=== PATIENT | female | born 1935 | race Caucasian/White ===

== ENCOUNTER 2018-09-20 15:30 | Emergency (ER) | payer MEDICARE, OTHER ==
--- NOTE | 2018-09-20 16:19 | ER Document Report ---
ED Medical Screen (RME) - General Chief Complaint: Chest Pain Stated Complaint: CHEST PAIN Time Seen by Provider: 09/20/18 16:13 - HPI Notes: 09/20/18 16:18 Patient is an 83-year-old female with a history of hypertension, congestive heart failure, coronary artery disease with CABG who presents to the emergency department complaining of dry cough and chest pain. Patient states that her upper respiratory illness began about a week ago and the chest pain over the last couple days. Pain does not radiate. Denies CUTLER, fever, neck pain, Abd pain, or rash. I have treated and performed a rapid initial assessment of this patient. A comprehensive ED assessment and evaluation of the patient, analysis of test results and completion of medical decision making process will be conducted by additional ED providers. PHYSICAL EXAMINATION: GENERAL: Well-appearing, well-nourished and in no acute distress. A&Ox4. Answers questions appropriately. LUNGS: Breath sounds clear to auscultation bilaterally and equal. No wheezes rales or rhonchi. HEART: Regular rate and rhythm without murmurs, rubs, gallops. Extremities: 2+ pitting LLE, 1+ RLE (normal for left to be more than right per pt). Non-tender. NEUROLOGICAL: Normal speech, normal gait. PSYCH: Normal mood, normal affect. - Related Data Allergies/Adverse Reactions: flu vaccine Allergy (Uncoded 09/20/18 15:32) Physical Exam - Vital signs Vitals: Temp Pulse Resp BP Pulse Ox 98.0 F 70 20 152/53 H 96 09/20/18 15:54 09/20/18 15:54 09/20/18 15:54 09/20/18 15:54 09/20/18 15:54 Course - Vital Signs Vital signs: Temp Pulse Resp BP Pulse Ox 98.0 F 70 20 152/53 H 96 09/20/18 15:54 09/20/18 15:54 09/20/18 15:54 09/20/18 15:54 09/20/18 15:54
--- NOTE | 2018-09-20 17:19 | RADIOLOGY REPORT (SQ) ---
EXAM DESCRIPTION: CHEST SINGLE VIEW COMPLETED DATE/TIME: 09/20/2018 4:53 pm REASON FOR STUDY: cp/cough COMPARISON: None. EXAM PARAMETERS: NUMBER OF VIEWS: One view. TECHNIQUE: Single frontal radiographic view of the chest acquired. RADIATION DOSE: NA LIMITATIONS: None. FINDINGS: LUNGS AND PLEURA: Mild prominence of the interstitial markings in the lungs may represent chronic changes with acute superimposed inflammatory changes not entirely excluded. Right lower rommel g zones scar or atelectasis. Small right pleural effusion. No pneumothorax. MEDIASTINUM AND HILAR STRUCTURES: No masses. Contour normal. HEART AND VASCULAR STRUCTURES: Heart normal in size. Normal vasculature. BONES: No acute findings. HARDWARE: Prior anterior median sternotomy and valve replacement. OTHER: Small hiatal hernia. IMPRESSION: 1. Mild prominence of the interstitial markings in the lungs, may be on the basis of ch ronic changes with acute superimposed inflammatory changes not entirely excluded. Right lower lung z one scar or atelectasis. 2. Small right pleural effusion. 3. Small hiatal hernia. TECHNICAL DOCUMENTATION: JOB ID: [id number] [employer]- All Rights Reserved Reading location - IP/workstation name: [email or web address]
[2018-09-20 18:10] LABS: ABSOLUTE EOSINOPHILS # (AUTO) 0.1 10^3/uL (0.0-0.6); ABSOLUTE LYMPHOCYTES (AUTO) 1.4 10^3/uL (0.5-4.7); ABSOLUTE MONOCYTES (AUTO) 0.5 10^3/uL (0.1-1.4); ABSOLUTE NEUT (AUTO) 3.5 10^3/uL (1.7-8.2); BASOPHILS % (AUTO) 0.7 % (0-2); EOSINOPHILS % (AUTO) 1.9 % (0-6); HEMATOCRIT 28.3 % (36.0-47.0); HEMOGLOBIN 9.3 g/dL (12.0-15.5); LYMPHOCYTES % (AUTO) 25.2 % (13-45); MEAN CORPUSCULAR HGB CONC 32.9 g/dL (32.0-36.0); MEAN CORPUSCULAR VOLUME 79 fl (80-97); MONOCYTES % (AUTO) 9.2 % (3-13); PLATELET COUNT 226 10^3/uL (150-450); RED BLOOD COUNT 3.57 10^6/uL (3.72-5.28); RED CELL DISTRIBUTION WIDTH 17.1 % (11.5-14.0); TOTAL CELLS COUNTED % (AUTO) 100 %; WHITE BLOOD COUNT 5.6 10^3/uL (4.0-10.5)
[2018-09-20 18:16] LABS: PROTHROMBIN TIME 14.8 SEC (11.4-15.4)
[2018-09-20 18:17] LABS: VENOUS BLOOD BASE EXCESS 0.5 mmol/L; VENOUS BLOOD PCO2 59.8 mmHg (35-63); VENOUS BLOOD PH 7.29 (7.30-7.42)
[2018-09-20 18:18] LABS: PARTIAL THROMBOPLASTIN TIME 41.4 SEC (23.5-35.8)
[2018-09-20 18:22] LABS: AMORPHOUS SEDIMENT,URINE TRACE /HPF; APPEARANCE,URINE CLOUDY; BILIRUBIN,URINE NEGATIVE (NEGATIVE); COLOR,URINE YELLOW; GLUCOSE, URINE 50 mg/dL (NEGATIVE); KETONES,URINE TRACE mg/dL (NEGATIVE); LEUKOCYTE ESTERASE,URINE MODERATE (NEGATIVE); NITRITE,URINE NEGATIVE (NEGATIVE); PROTEIN,URINE 100 mg/dL (NEGATIVE); URINE SPECIFIC GRAVITY 1.015; UROBILINOGEN,URINE NEGATIVE mg/dL (<2.0)
[2018-09-20 18:34] LABS: ALANINE AMINOTRANSFERASE 13 U/L (9-52); ALBUMIN 3.5 g/dL (3.5-5.0); ALKALINE PHOSPHATASE 66 U/L (38-126); ANION GAP 9 (5-19); ASPARTATE AMINO TRANSFERASE 19 U/L (14-36); BILIRUBIN,DIRECT 0.2 mg/dL (0.0-0.4); BILIRUBIN,TOTAL 0.3 mg/dL (0.2-1.3); BLOOD UREA NITROGEN 25 mg/dL (7-20); CALCIUM 8.9 mg/dL (8.4-10.2); CARBON DIOXIDE 28 mmol/L (22-30); CHLORIDE 105 mmol/L (98-107); GLUCOSE 112 mg/dL (75-110); SODIUM 141.9 mmol/L (137-145); TOTAL PROTEIN 6.3 g/dL (6.3-8.2)
[2018-09-20 18:44] LABS: TROPONIN I 0.014 ng/mL
--- NOTE | 2018-09-20 21:48 | EKG REPORT ---
SEVERITY:- ABNORMAL ECG - SINUS RHYTHM LEFT AXIS DEVIATION PROBABLE LVH WITH SECONDARY REPOL ABNRM : Confirmed by: Stephani Hurtado MD 20-Sep-2018 21:47:56
--- NOTE | 2018-09-20 21:59 | ER Document Report ---
ED General - General Chief Complaint: Chest Pain Stated Complaint: CHEST PAIN Time Seen by Provider: 09/20/18 16:13 Primary Care Provider: MICHELLE SMART MD [ACTIVE STAFF] - Follow up in 3-5 days KVNG VALERO MD [ACTIVE STAFF] - 09/22/18 REGULO LUZ MD [ACTIVE STAFF] - 09/22/18 Notes: Patient is a 83-year-old female presents with complaint of some recurrent coughing. Also some increased edema in the lower extremities. Patient just recently down to the area to live with family. She denies any fevers or infections. No production with a cough. Cough is dry. She does have history of CHF. Has some chest pain but only occurs when she has been coughing. She says just a soreness in her chest from the coughing. It developed after she had been coughing for several days. - Related Data Allergies/Adverse Reactions: flu vaccine Allergy (Uncoded 09/20/18 15:32) Past Medical History - Social History Smoking Status: Never Smoker Frequency of alcohol use: None Drug Abuse: None Family History: Reviewed & Not Pertinent Patient has suicidal ideation: No Patient has homicidal ideation: No - Past Medical History Cardiac Medical History: Reports: Hx Hypercholesterolemia, Hx Hypertension Endocrine Medical History: Reports: Hx Diabetes Mellitus Type 2 Renal/ Medical History: Denies: Hx Peritoneal Dialysis Past Surgical History: Reports: Hx Cardiac Surgery - triple bipass Review of Systems - Review of Systems Notes: My Normal Review Basic REVIEW OF SYSTEMS: CONSTITUTIONAL : Denies fever, chills, or sweats. Denies recent illness. EENT: Denies eye, ear, throat, or mouth pain or symptoms. Denies nasal or sinus congestion. CARDIOVASCULAR: Soreness to chest with coughing RESPIRATORY: Recurrent cough GASTROINTESTINAL: Denies abdominal pain. Denies nausea, vomiting, or diarrhea. Denies constipation. Last BM: MUSCULOSKELETAL: Lower extremity edema. SKIN: Denies rash or skin lesions. NEUROLOGICAL: Denies altered mental status or loss of consciousness ALL OTHER SYSTEMS REVIEWED AND NEGATIVE. Physical Exam - Vital signs Vitals: Temp Pulse Resp BP Pulse Ox 98.0 F 70 20 152/53 H 96 09/20/18 15:54 09/20/18 15:54 09/20/18 15:54 09/20/18 15:54 09/20/18 15:54 - Notes Notes: General Appearance: Well nourished, alert, cooperative, no acute distress, no obvious discomfort. Well-appearing. Vitals: reviewed, See vital signs table. Eyes: PERRL, EOMI, Conjuctiva clear Mouth: No decreasd moisture Lungs: No wheezing, No rales, No rhonci, No accessory muscle use, good air exchange bilaterally. Heart: Normal rate, Regular rythm, No murmur, no rub Abdomen: Normal BS, soft, No rigidity, No abdominal tenderness, No guarding, no rebound Extremities: strength 5/5 in all extremities, good pulses in all extremities, no swelling or tenderness in the extremities, 2+ bilateral lower extremity edema. Skin: warm, dry, appropriate color, no rash Neuro: speech clear, oriented x 3, normal affect, responds appropriately to questions. Course - Re-evaluation Re-evalutation: 09/20/18 22:26 I suspect that the patient's recurrent dry cough for the last week is probably related to a little bit of fluid overload. She has some increasing edema in the lower extremities, her BNP is elevated, and her chest x-ray shows some mild pulmonary vascular congestion. Lung ruvalcaba are clear to auscultation. Oxygenation is 95% on room air. She is does not have increased work of breathing. She looks well. Feel she is safe to be discharged home. She used to be on Lasix but has not been on it for a while. I think placing her back on a low-dose of Lasix is appropriate. I have prescribed this for her. I spoke to her and her granddaughter at length about this and they are agreeable to plan. She did just recently moved to the area and therefore she does not have a do ctor. I will refer her to the feather cutting machine feeder. She also has some protein in the urine with some mild renal insufficiency and therefore will refer her to the door captain as well. I encouraged him to return to ER immediately if the patient has fevers, difficulty breathing, worsening pain in her chest, or if she feels that she is worsening in any way. I suspect that her chest pain is a soreness from coughing being that the patient actually describes it as a soreness that is worse when she breathes in or coughs. She says it did not start until after she had been coughing for a while. Troponin and EKG are negative. Dictation of this chart was performed using voice recognition software; there fore, there may be some unintended grammatical errors. - Vital Signs Vital signs: Temp Pulse Resp BP Pulse Ox 98.2 F 70 19 169/72 H 96 09/20/18 22:01 09/20/18 15:54 09/20/18 22:01 09/20/18 22:00 09/20/18 22:01 - Laboratory Result Diagrams: 09/20/18 17:32 09/20/18 17:32 Laboratory results interpreted by me: 09/20/18 09/20/18 09/20/18 17:32 17:32 17:32 RBC 3.57 L Hgb 9.3 L Hct 28.3 L MCV 79 L MCH 26.0 L RDW 17.1 H APTT VBG pH BUN 25 H Creatinine 1.47 H Est GFR ( Amer) 41 L Est GFR (Non-Af Amer) 34 L Glucose 112 H NT-Pro-B Natriuret Pep 5180 H Urine Protein Urine Glucose (UA) Urine Ketones Ur Leukocyte Esterase Urine Ascorbic Acid 09/20/18 09/20/18 09/20/18 17:32 17:32 17:32 RBC Hgb Hct MCV MCH RDW APTT 41.4 H VBG pH 7.29 L BUN Creatinine Est GFR ( Amer) Est GFR (Non-Af Amer) Glucose NT-Pro-B Natriuret Pep Urine Protein 100 H Urine Glucose (UA) 50 H Urine Ketones TRACE H Ur Leukocyte Esterase MODERATE H Urine Ascorbic Acid 40 H - EKG Interpretation by Me Additional EKG results interpreted by me: 09/20/18 21:58 EKG is reviewed and interpreted by me. EKG shows normal sinus rhythm with a rate of [address] segment elevation or depression. Biphasic T waves in leads V5 and V6. PA interval is slightly prolonged. QRS duration QT intervals are within normal range. Discharge - Discharge Clinical Impression: Leg edema, Cough CHF (congestive heart failure) Qualifiers: Heart failure type: unspecified Heart failure chronicity: acute on chronic Qualified Code(s): I50.9 - Heart failure, unspecified Proteinuria Qualifiers: Proteinuria type: unspecified Qualified Code(s): R80.9 - Proteinuria, unspecified Condition: Good Disposition: HOME, SELF-CARE Additional Instructions: I suspect your coughing is related to some fluid overload. This is based on your blood work, edema in your legs, and the chest x-ray findings of a little bit of vascular congestion. Treatment is compression hose on your legs as well as taking Lasix. Please take the Lasix as prescribed. Please follow-up with a heart doctor. I have provided numbers to do different heart doctors. Their names are Dr. Valero and Dr. Luz. Their phone numbers are on the discharge paperwork. You did have some protein in urine. I have also provided the phone number to the local kidney doctor, Dr. Smart. Please call them to make a close follow-up appointment. Please return to the ER immediately if you have worsening chest pain, difficulty breathing, fevers, or feel that you are worsening in any way. Prescriptions: Furosemide [Lasix 20 mg Tablet] 20 mg PO QAM #15 tablet RX: Potassium Chloride 10 meq PO DAILY #15 capsule.er Referrals: KVNG VALERO MD [ACTIVE STAFF] - 09/22/18 REGULO LUZ MD [ACTIVE STAFF] - 09/22/18 MICHELLE SMART MD [ACTIVE STAFF] - Follow up in 3-5 days
[2018-09-20] MEDS ORDERED: FUROSEMIDE INJ/PF 20 MG/2 ML SDV IV ONE (22:21)
[2018-09-20 23:05] VITALS: BP 169/72
== END 2018-09-20 22:35 | disposition home or self-care (01) ==
LOC: ER 15:30
DX: R60.9 Edema, unspecified (principal); I50.9 Heart failure, unspecified; R80.9 Proteinuria, unspecified; R05 Cough; R07.9 Chest pain, unspecified; E78.00 Pure hypercholesterolemia, unspecified; I11.0 Hypertensive heart disease with heart failure; E11.9 Type 2 diabetes mellitus without complications; Z95.1 Presence of aortocoronary bypass graft
CPT/HCPCS: 93005; 99284; 96374; 36415; 85025; 85610; 85730; 80053; 81001; 84484; 82803; 83880; 71045; 93010; J1940

== ENCOUNTER → 2018-10-09 | Outpatient (CLI) | payer MEDICARE ==
--- NOTE | 2018-10-09 16:32 | RADIOLOGY REPORT (SQ) ---
EXAM DESCRIPTION: CHEST PA/LATERAL COMPLETED DATE/TIME: 10/09/2018 3:59 pm REASON FOR STUDY: COUGH COMPARISON: 09/20/2018 EXAM PARAMETERS: NUMBER OF VIEWS: two views TECHNIQUE: Digital Frontal and Lateral radiographic views of the chest acquired. RADIATION DOSE: NA LIMITATIONS: none FINDINGS: LUNGS AND PLEURA: Small right pleural effusion and associated airspace disease. There is a background of COPD. MEDIASTINUM AND HILAR STRUCTURES: Stable. HEART AND VASCULAR STRUCTURES: Stable heart size. No evidence of failure. BONES: No acute findings. HARDWARE: Prosthetic heart valve. OTHER: No other significant finding. IMPRESSION: Right lower lobe pneumonia. TECHNICAL DOCUMENTATION: JOB ID: [id number] [employer]- All Rights Reserved Reading location - IP/workstation name: [email or web address]
== END ==
LOC: OD 15:39
PROVIDERS: ATTEND Family Medicine
DX: R05 Cough (principal)
CPT/HCPCS: 71046

== ENCOUNTER → 2018-10-17 | Outpatient (CLI) | payer MEDICARE, OTHER ==
--- NOTE | 2018-10-18 20:35 | XCELERA REPORT ---
[address] [address] Transthoracic Echocardiogram Report Name: EMILY PERES Age: 83 yrs Gender: Female : 1935 Patient Status: Outpatient Patient Location: Study Date: 10/17/2018 10:17 AM Height: 61 in Weight: 134 lb BSA: 1.6 m2 Procedure: A two-dimensional transthoracic echocardiogram with color flow and Doppler was performed. Study Quality: Fair. Reason For Study: SOB History: Shortness of breath. Ordering Physician: STEPHANI HURTADO Performed By: Hussain Salcido Interpretation Summary Recommend SBE prophylaxis prior to dental,GI, and procedures / surgeries. The left ventricle is normal in size. There is normal left ventricular wall thickness. LV EF is > than 65% The left ventricular ejection fraction is within normal limits. Doppler measurements suggest normal left ventricular diastolic function The left ventricular wall motion is normal. There is no thrombus. NO ASD,VSD , or PFO seen. The right ventricle is mild to moderately dilated. The right ventricle is not well visualized secondary to technical limitations The right atrium is normal. The left atrium is mildly dilated. There is evidence of mitral valve repair.There is mild Mitral Stenosis.Trace to mild MR.No vegetations.No MVP. There is no aortic valvular vegetation. There is no aortic valve stenosis There is aortic sclerosis without aortic stenosis. There is no LVOT obstruction. There is a trace amount of aortic regurgitation There is no tricuspid stenosis. There is a moderate amount of tricuspid regurgitation There is mild pulmonary hypertension by echo RVSP is 38 to 43 mm of Hg , with RA mean of 5 to 10. There is no pulmonic valvular stenosis. There is a trace amount of pulmonic regurgitation The aortic root is normal size. The inferior vena cava appeared normal and decreased > 50% with respiration (RAP 5-10 mmHg) There is no pericardial effusion. Recommend SBE prophylaxis prior to dental,GI, and procedures / surgeries. MMode/2D Measurements & Calculations RVDd: 3.9 cm LVIDd: 4.6 cm FS: 40.4 % Ao root diam: 3.2 cm IVSd: 0.81 cm LVIDs: 2.7 cm EDV(Teich): 95.0 ml Ao root area: 8.1 cm2 LVPWd: 0.97 cm ESV(Teich): 27.4 ml LA dimension: 4.3 cm EF(Teich): 71.2 % Doppler Measurements & Calculations MV E max indra: MV P1/2t max indra: Ao V2 max: LV V1 max P.3 cm/sec 124.3 cm/sec 152.0 cm/sec 4.1 mmHg MV A max indra: MV P1/2t: 103.6 msec Ao max PG: LV V1 max: 81.4 cm/sec MVA(P1/2t): 2.1 cm2 9.2 mmHg 100.9 cm/sec MV E/A: 1.6 MV dec slope: 351.6 cm/sec2 MV dec time: 0.29 sec PA V2 max: PI end-d indra: TR max indra: MV P1/2t-pr_phl: 97.7 cm/sec 129.0 cm/sec 285.0 cm/sec 103.6 msec PA max P.8 mmHg TR max P.5 mmHg Left Ventricle The left ventricle is normal in size. There is normal left ventricular wall thickness. LV EF is > than 65%. The left ventricular ejection fraction is within normal limits. Doppler measurements suggest normal left ventricular diastolic function. The left ventricular wall motion is normal. There is no thrombus. NO ASD,VSD , or PFO seen. Right Ventricle The right ventricle is mild to moderately dilated. The right ventricle is not well visualized secondary to technical limitations. Atria The right atrium is normal. The left atrium is mildly dilated. Mitral Valve There is evidence of mitral valve repair.There is mild Mitral Stenosis.Trace to mild MR.No vegetations.No MVP. Aortic Valve There is no aortic valvular vegetation. There is no aortic valve stenosis. There is aortic sclerosis without aortic stenosis. There is no LVOT obstruction. There is a trace amount of aortic regurgitation. Tricuspid Valve There is no tricuspid stenosis. There is a moderate amount of tricuspid regurgitation. There is mild pulmonary hypertension by echo. RVSP is 38 to 43 mm of Hg , with RA mean of 5 to 10. Pulmonic Valve There is no pulmonic valvular stenosis. There is a trace amount of pulmonic regurgitation. Great Vessels The aortic root is normal size. The inferior vena cava appeared normal and decreased > 50% with respiration (RAP 5-10 mmHg). Effusions There is no pericardial effusion. : STEPHANI HURTADO > Stephani Hurtado
== END ==
LOC: SP 09:39
PROVIDERS: ATTEND Specialist
DX: R06.02 Shortness of breath (principal)
CPT/HCPCS: 93306

== ENCOUNTER → 2018-10-19 | Outpatient (CLI) | payer MEDICARE, OTHER ==
--- NOTE | 2018-10-19 13:59 | RADIOLOGY REPORT (SQ) ---
EXAM DESCRIPTION: CHEST PA/LATERAL COMPLETED DATE/TIME: 10/19/2018 12:38 pm REASON FOR STUDY: BRONCHOPNEUMONIA, UNSPECIFIED ORGANISM COMPARISON: [id number] EXAM PARAMETERS: NUMBER OF VIEWS: two views TECHNIQUE: Digital Frontal and Lateral radiographic views of the chest acquired. RADIATION DOSE: NA LIMITATIONS: none FINDINGS: LUNGS AND PLEURA: No opacities, masses or pneumothorax. No pleural effusion. MEDIASTINUM AND HILAR STRUCTURES: No masses or contour abnormalities. HEART AND VASCULAR STRUCTURES: Heart size is borderline. No pulmonary edema. BONES: Scoliosis. HARDWARE: Sternotomy wires. Graft markers. Heart valve. OTHER: No other significant finding. IMPRESSION: Borderline cardiomegaly without pulmonary edema. TECHNICAL DOCUMENTATION: JOB ID: [id number] [employer]- All Rights Reserved Reading location - IP/workstation name: [email or web address]
== END ==
LOC: OD 12:26
PROVIDERS: ATTEND Family Medicine
DX: J18.0 Bronchopneumonia, unspecified organism (principal); I51.7 Cardiomegaly
CPT/HCPCS: 71046

== ENCOUNTER → 2018-12-04 | Outpatient (CLI) | payer MEDICARE, OTHER ==
[2018-12-04 13:58] LABS: HEMATOCRIT 29.9 % (36.0-47.0); HEMOGLOBIN 9.8 g/dL (12.0-15.5); MEAN CORPUSCULAR HEMOGLOBIN 26.2 pg (27.0-33.4); MEAN CORPUSCULAR HGB CONC 32.7 g/dL (32.0-36.0); MEAN CORPUSCULAR VOLUME 80 fl (80-97); PLATELET COUNT 189 10^3/uL (150-450); RED BLOOD COUNT 3.73 10^6/uL (3.72-5.28); RED CELL DISTRIBUTION WIDTH 18.5 % (11.5-14.0); WHITE BLOOD COUNT 4.2 10^3/uL (4.0-10.5)
[2018-12-04 14:16] LABS: APPEARANCE,URINE CLEAR; BILIRUBIN,URINE NEGATIVE (NEGATIVE); COLOR,URINE STRAW; GLUCOSE, URINE NEGATIVE (NEGATIVE); KETONES,URINE NEGATIVE (NEGATIVE); LEUKOCYTE ESTERASE,URINE NEGATIVE (NEGATIVE); NITRITE,URINE NEGATIVE (NEGATIVE); PROTEIN,URINE NEGATIVE (NEGATIVE); URINE SPECIFIC GRAVITY 1.008; UROBILINOGEN,URINE NEGATIVE mg/dL (<2.0)
[2018-12-04 14:18] LABS: ANION GAP 8 (5-19); BLOOD UREA NITROGEN 20 mg/dL (7-20); CALCIUM 8.9 mg/dL (8.4-10.2); CARBON DIOXIDE 29 mmol/L (22-30); CHLORIDE 104 mmol/L (98-107); GLUCOSE 125 mg/dL (75-110); PHOSPHORUS 4.4 mg/dL (2.5-4.5); POTASSIUM 4.5 mmol/L (3.6-5.0); SODIUM 141.2 mmol/L (137-145)
== END ==
LOC: OD 13:25
PROVIDERS: ATTEND Internal Medicine Nephrology
DX: E11.22 Type 2 diabetes mellitus with diabetic chronic kidney disease (principal); I12.9 Hypertensive chronic kidney disease with stage 1 through stage 4 chronic kidney disease, or unspecified chronic kidney disease; N18.3 Chronic kidney disease, stage 3 (moderate)
CPT/HCPCS: 36415; 80048; 81001; 83735; 83970; 84100; 85027

== ENCOUNTER → 2018-12-22 | Outpatient (CLI) | payer MEDICARE, OTHER ==
--- NOTE | 2018-12-22 13:14 | WOMENS IMAGING REPORT ---
EXAM DESCRIPTION: RETROPERITONEAL U/S COMPLETED DATE/TIME: 12/22/2018 11:57 am REASON FOR STUDY: N18.3 I12.9 N18.3 CHRONIC KIDNEY DISEASE, STAGE 3 (MODERATE) I12.9 HYPERTENSIVE CHRONIC KIDNEY DISEASE W STG 1-4/UNSP CHR COMPARISON: None. TECHNIQUE: Dynamic and static grayscale images acquired of the kidneys and bladder and recorded on P ACS. Additional selected color Doppler and spectral images recorded. LIMITATIONS: None. FINDINGS: RIGHT KIDNEY: 9 cm in length with diffuse increased cortical echogenicity and cortical thinning. No solid or suspicious masses. 2 cm cortical cyst. No hydronephrosis. No calcificati ons. LEFT KIDNEY: 9.8 cm in length with diffuse increased cortical echogenicity and cortical thinning. No solid or suspicious masses. No hydronephrosis. No calcifications. BLADDER: No masses. Prevoid bladder volume 137 mL, postvoid bladder volume 2 mL OTHER FINDINGS: Incidental finding of stones in the gallbladder without gallbladder wall thickening o r pericholecystic fluid. IMPRESSION: No hydronephrosis Kidneys demonstrate increased cortical echogenicity TECHNICAL DOCUMENTATION: JOB ID: [id number] [employer]- All Rights Reserved Reading location - IP/workstation name: [email or web address]
== END ==
LOC: WI 11:05
PROVIDERS: ATTEND Internal Medicine Nephrology
DX: I12.9 Hypertensive chronic kidney disease with stage 1 through stage 4 chronic kidney disease, or unspecified chronic kidney disease (principal); N18.3 Chronic kidney disease, stage 3 (moderate)
CPT/HCPCS: 76770

== ENCOUNTER → 2019-06-19 | Outpatient (CLI) | payer MEDICARE, OTHER ==
[2019-06-19 14:31] LABS: HEMATOCRIT 33.5 % (36.0-47.0); HEMOGLOBIN 11.4 g/dL (12.0-15.5); MEAN CORPUSCULAR HGB CONC 34.1 g/dL (32.0-36.0); MEAN CORPUSCULAR VOLUME 88 fl (80-97); PLATELET COUNT 176 10^3/uL (150-450); RED BLOOD COUNT 3.81 10^6/uL (3.72-5.28); WHITE BLOOD COUNT 6.6 10^3/uL (4.0-10.5)
[2019-06-19 15:03] LABS: ANION GAP 8 (5-19); BLOOD UREA NITROGEN 27 mg/dL (7-20); CALCIUM 9.1 mg/dL (8.4-10.2); CARBON DIOXIDE 28 mmol/L (22-30); CHLORIDE 105 mmol/L (98-107); GLUCOSE 93 mg/dL (75-110); POTASSIUM 4.4 mmol/L (3.6-5.0)
== END ==
LOC: OD 13:13
PROVIDERS: ATTEND Internal Medicine Nephrology
DX: I13.0 Hypertensive heart and chronic kidney disease with heart failure and stage 1 through stage 4 chronic kidney disease, or unspecified chronic kidney disease (principal); I50.9 Heart failure, unspecified; N18.3 Chronic kidney disease, stage 3 (moderate); E11.22 Type 2 diabetes mellitus with diabetic chronic kidney disease; N25.0 Renal osteodystrophy
CPT/HCPCS: 36415; 80048; 85027

== ENCOUNTER → 2019-07-30 | Outpatient (CLI) | payer MEDICARE, OTHER ==
[2019-07-30 13:08] LABS: ABSOLUTE EOSINOPHILS # (AUTO) 0.1 10^3/uL (0.0-0.6); ABSOLUTE LYMPHOCYTES (AUTO) 1.7 10^3/uL (0.5-4.7); ABSOLUTE MONOCYTES (AUTO) 0.5 10^3/uL (0.1-1.4); ABSOLUTE NEUT (AUTO) 4.4 10^3/uL (1.7-8.2); BASOPHILS % (AUTO) 0.6 % (0-2); EOSINOPHILS % (AUTO) 1.5 % (0-6); HEMATOCRIT 36.2 % (36.0-47.0); HEMOGLOBIN 12.2 g/dL (12.0-15.5); LYMPHOCYTES % (AUTO) 25.6 % (13-45); MEAN CORPUSCULAR HEMOGLOBIN 29.7 pg (27.0-33.4); MEAN CORPUSCULAR HGB CONC 33.7 g/dL (32.0-36.0); MEAN CORPUSCULAR VOLUME 88 fl (80-97); MONOCYTES % (AUTO) 7.2 % (3-13); PLATELET COUNT 212 10^3/uL (150-450); RED CELL DISTRIBUTION WIDTH 13.2 % (11.5-14.0); SEGMENTED NEUTROPHILS % (AUTO) 65.1 % (42-78); TOTAL CELLS COUNTED % (AUTO) 100 %; WHITE BLOOD COUNT 6.8 10^3/uL (4.0-10.5)
[2019-07-30 13:33] LABS: ANION GAP 10 (5-19); BLOOD UREA NITROGEN 28 mg/dL (7-20); CALCIUM 9.1 mg/dL (8.4-10.2); CARBON DIOXIDE 30 mmol/L (22-30); CHLORIDE 100 mmol/L (98-107); GLUCOSE 243 mg/dL (75-110); POTASSIUM 4.5 mmol/L (3.6-5.0)
== END ==
LOC: OD 12:26
PROVIDERS: ATTEND Internal Medicine Nephrology
DX: I13.0 Hypertensive heart and chronic kidney disease with heart failure and stage 1 through stage 4 chronic kidney disease, or unspecified chronic kidney disease (principal); I50.9 Heart failure, unspecified; N18.3 Chronic kidney disease, stage 3 (moderate); E11.22 Type 2 diabetes mellitus with diabetic chronic kidney disease; D63.1 Anemia in chronic kidney disease; E87.6 Hypokalemia
CPT/HCPCS: 36415; 80048; 83735; 85025

== ENCOUNTER 2019-12-17 17:07 | Emergency (ER) | payer MEDICARE, OTHER ==
--- NOTE | 2019-12-17 18:04 | ER Document Report ---
ED Medical Screen (RME) - General Chief Complaint: Chest Pain Stated Complaint: CHEST PAIN Time Seen by Provider: 12/17/19 17:56 Primary Care Provider: Ferny WISE MD [Primary Care Provider] - Follow up as needed Notes: HPI: 84-year-old female with history of CHF, chronic kidney disease, type 2 diabetes, heart attack, CABG x3 in 1995, hypertension presenting for upper abdominal discomfort and heartburn symptoms that began yesterday with radiation into the central chest and around into the left chest. No shortness of breath. Patient states she also has gallstones and is not sure whether this is her stom ach or her heart. PHYSICAL EXAMINATION: Lung sounds are clear to auscultation regular rate and rhythm. EKG normal sinus rhythm with a ventricular rate of 62, first-degree AV block. Some inferior T wave abnormalities in the inferior leads slightly changed from prior EKG. Reviewed by ER attending physician I have greeted and performed a rapid initial assessment of this patient. A comprehensive ED assessment and evaluation of the patient, analysis of test results and completion of medical decision making process will be conducted by an additional ED providers. TRAVEL OUTSIDE OF THE [place] IN LAST 30 DAYS: No - Related Data Allergies/Adverse Reactions: flu vaccine Allergy (Uncoded 12/17/19 17:50) Past Medical History - Social History Chew tobacco use (# tins/day): No Frequency of alcohol use: None Drug Abuse: None - Past Medical History Cardiac Medical History: Reports: Hx Hypercholesterolemia, Hx Hypertension Endocrine Medical History: Reports: Hx Diabetes Mellitus Type 2 Renal/ Medical History: Denies: Hx Peritoneal Dialysis Past Surgical History: Reports: Hx Cardiac Surgery - triple bipass Physical Exam - Vital signs Vitals: Temp Pulse Resp BP Pulse Ox 98.1 F 62 16 141/52 H 96 12/17/19 17:21 12/17/19 17:21 12/17/19 17:21 12/17/19 17:21 12/17/19 17:21 Course - Vital Signs Vital signs: Temp Pulse Resp BP Pulse Ox 98.1 F 62 16 141/52 H 96 12/17/19 17:21 12/17/19 17:21 12/17/19 17:21 12/17/19 17:21 12/17/19 17:21 Doctor's Discharge - Discharge Referrals: Ferny WISE MD [Primary Care Provider] - Follow up as needed
[2019-12-17 18:33] LABS: ABSOLUTE EOSINOPHILS # (AUTO) 0.1 10^3/uL (0.0-0.6); ABSOLUTE LYMPHOCYTES (AUTO) 1.9 10^3/uL (0.5-4.7); ABSOLUTE MONOCYTES (AUTO) 0.4 10^3/uL (0.1-1.4); ABSOLUTE NEUT (AUTO) 3.1 10^3/uL (1.7-8.2); BASOPHILS % (AUTO) 0.4 % (0-2); EOSINOPHILS % (AUTO) 1.2 % (0-6); HEMATOCRIT 34.2 % (36.0-47.0); HEMOGLOBIN 11.5 g/dL (12.0-15.5); LYMPHOCYTES % (AUTO) 34.5 % (13-45); MEAN CORPUSCULAR HEMOGLOBIN 29.4 pg (27.0-33.4); MEAN CORPUSCULAR HGB CONC 33.8 g/dL (32.0-36.0); MEAN CORPUSCULAR VOLUME 87 fl (80-97); MONOCYTES % (AUTO) 7.3 % (3-13); PLATELET COUNT 177 10^3/uL (150-450); RED BLOOD COUNT 3.92 10^6/uL (3.72-5.28); RED CELL DISTRIBUTION WIDTH 13.4 % (11.5-14.0); SEGMENTED NEUTROPHILS % (AUTO) 56.6 % (42-78); TOTAL CELLS COUNTED % (AUTO) 100 %; WHITE BLOOD COUNT 5.5 10^3/uL (4.0-10.5)
[2019-12-17 18:39] LABS: INTERNATIONAL RATION (INR) 1.15; PROTHROMBIN TIME 14.8 SEC (11.4-15.4)
[2019-12-17 18:42] LABS: ALBUMIN 3.7 g/dL (3.5-5.0); ALKALINE PHOSPHATASE 72 U/L (38-126); ANION GAP 6 (5-19); ASPARTATE AMINO TRANSFERASE 20 U/L (14-36); BILIRUBIN,TOTAL 0.4 mg/dL (0.2-1.3); BLOOD UREA NITROGEN 27 mg/dL (7-20); CALCIUM 9.1 mg/dL (8.4-10.2); CARBON DIOXIDE 31 mmol/L (22-30); CHLORIDE 101 mmol/L (98-107); GLUCOSE 122 mg/dL (75-110); POTASSIUM 4.5 mmol/L (3.6-5.0); TOTAL PROTEIN 6.4 g/dL (6.3-8.2)
--- NOTE | 2019-12-17 19:03 | RADIOLOGY REPORT (SQ) ---
EXAM DESCRIPTION: CHEST SINGLE VIEW IMAGES COMPLETED DATE/TIME: 12/17/2019 6:32 pm REASON FOR STUDY: chest pain COMPARISON: 10/19/2018 EXAM PARAMETERS: NUMBER OF VIEWS: One view. TECHNIQUE: Single frontal radiographic view of the chest acquired. RADIATION DOSE: NA LIMITATIONS: None. FINDINGS: LUNGS AND PLEURA: Mild linear parenchymal density in the right lower lung zone may be on the basis of infiltrate/atelectasis. Stable slight left lower lobe scarring or atelectasis. No pneu mothorax or pleural effusion. MEDIASTINUM AND HILAR STRUCTURES: No masses. Contour normal. HEART AND VASCULAR STRUCTURES: Stable appearance. BONES: No acute findings. HARDWARE: Prior anterior median sternotomy and valve prostheses. OTHER: Hiatal hernia, stable finding. IMPRESSION: 1. Mild parenchymal density in the right lower lung zone may be on the basis of infiltr ate/atelectasis. TECHNICAL DOCUMENTATION: JOB ID: [id number] [employer]- All Rights Reserved Reading location - IP/workstation name: [email or web address]
--- NOTE | 2019-12-17 19:35 | ER Document Report ---
Entered by KELLEE ROSENBAUM SCRIBE 12/17/19 [id number] Acting as scribe for:RUTHIE LAM DO ED GI/ - General Chief Complaint: Chest Pain Stated Complaint: CHEST PAIN Time Seen by Provider: 12/17/19 17:56 Primary Care Provider: Ferny WISE MD [ACTIVE STAFF] - Follow up as needed Information source: Patient Notes: This 84 year old female patient presents to the emergency department today with complaints of diarrhea and abdominal pain. Patient states that yesterday she called 911, they came out and did an EKG but she did not wish to be transported at that time. Daughter at bedside reports that the patient has not been feeling well for 2 weeks but she is unable to elaborate on any symptoms the patient had been having for the last 2 weeks. Patient denies fevers. TRAVEL OUTSIDE OF THE [place] IN LAST 30 DAYS: No - Related Data Allergies/Adverse Reactions: flu vaccine Allergy (Uncoded 12/17/19 17:50) Past Medical History - General Information source: Patient - Social History Smoking Status: Never Smoker Cigarette use (# per day): No Chew tobacco use (# tins/day): No Frequency of alcohol use: None Drug Abuse: None Lives with: Family Family History: Reviewed & Not Pertinent Patient has homicidal ideation: No - Past Medical History Cardiac Medical History: Reports: Hx Hypercholesterolemia, Hx Hypertension Endocrine Medical History: Reports: Hx Diabetes Mellitus Type 2 Past Surgical History: Reports: Hx Cardiac Surgery - triple bipass Review of Systems - Review of Systems Constitutional: denies: Fever EENT: No symptoms reported Cardiovascular: No symptoms reported Respiratory: No symptoms reported Gastrointestinal: See HPI, Abdominal pain, Diarrhea Genitourinary: No symptoms reported Female Genitourinary: No symptoms reported Musculoskeletal: No symptoms reported Skin: No symptoms reported Hematologic/Lymphatic: No symptoms reported Neurological/Psychological: No symptoms reported -: Yes All other systems reviewed and negative Physical Exam - Vital signs Vitals: Temp Pulse Resp BP Pulse Ox 98.1 F 62 16 141/52 H 96 12/17/19 17:21 12/17/19 17:21 12/17/19 17:21 12/17/19 17:21 12/17/19 17:21 - Notes Notes: Physical Exam: General: Alert, appears age appropriate. HEENT: Normocephalic. Atraumatic. PERRL. Extraocular movements intact. Oropharynx clear. Neck: Supple. Non-tender. Respiratory: No respiratory distress. Clear and equal breath sounds bilaterally. Cardiovascular: Regular rate and rhythm. Abdominal: Normal Inspection. Non-tender. No distension. Normal Bowel Sounds. Back: No gross abnormalities. Extremities: Moves all four extremities. Upper extremities: Normal inspection. Normal ROM. Lower extremities: Normal inspection. No edema. Normal ROM. Neurological: Fine tremor. Normal cognition. AAOx4. Normal speech. Psychological: Normal affect. Normal Mood. Skin: 4cm area anterior to right ear with small amount of eschar. Course - Vital Signs Vital signs: Temp Pulse Resp BP Pulse Ox 98.1 F 62 15 143/57 H 100 12/17/19 17:21 12/17/19 17:21 12/17/19 21:00 12/17/19 19:01 12/17/19 21:00 - Laboratory Result Diagrams: 12/17/19 17:20 12/17/19 17:20 Laboratory results interpreted by me: 12/17/19 12/17/19 12/17/19 17:20 17:20 18:57 Hgb 11.5 L Hct 34.2 L Carbon Dioxide 31 H BUN 27 H Creatinine 1.66 H Est GFR ( Amer) 36 L Est GFR (MDRD) Non-Af 29 L Glucose 122 H Lactic Acid Leukocyte Esterase Rfl MODERATE H 12/17/19 19:28 Hgb Hct Carbon Dioxide BUN Creatinine Est GFR ( Amer) Est GFR (MDRD) Non-Af Glucose Lactic Acid 0.6 L Leukocyte Esterase Rfl - Diagnostic Test Radiology reviewed: Reports reviewed - NSr Nl [place] [address] elevation or depression my interpretation. - EKG Interpretation by Me EKG shows normal: Sinus rhythm Rate: Normal Rhythm: NSR When compared to previous EKG there are: No significant change - NSR NL [place] 62 BPM 1st degree AV Block no st elevation or depression myinterpretation. Discharge - Discharge Clinical Impression: UTI (urinary tract infection) Qualifiers: Urinary tract infection type: site unspecified Hematuria presence: with hematuria Qualified Code(s): N39.0 - Urinary tract infection, site not specified; R31.9 - Hematuria, unspecified Gallstone Qualifiers: Cholecystitis presence: without cholecystitis Biliary obstruction: without biliary obstruction Qualified Code(s): K80.20 - Calculus of gallbladder without cholecystitis without obstruction Hypertension Qualifiers: Hypertension type: unspecified Qualified Code(s): I10 - Essential (primary) hypertension Condition: Stable Disposition: HOME, SELF-CARE Instructions: Cephalexin ([facility]), Urinary Tract Infection ([facility]), Gallbladder Disease ([facility]) Additional Instructions: See your doctor in follow up. Rest. Take your medicine as directed. Return here for inability to tolerate the medicine, weakness, change in level or consciousness or other concerns. Referrals: Ferny WISE MD [ACTIVE STAFF] - Follow up as needed I personally performed the services described in the documentation, reviewed and edited the documentation which was dictated to the scribe in my presence, and it accurately records my words and actions.
[2019-12-17 19:42] LABS: APPEARANCE,URINE SLIGHTLY-CLOUDY; BILIRUBIN,URINE NEGATIVE (NEGATIVE); COLOR,URINE YELLOW; GLUCOSE, URINE NEGATIVE (NEGATIVE); KETONES,URINE NEGATIVE (NEGATIVE); PROTEIN,URINE NEGATIVE (NEGATIVE); URINE SPECIFIC GRAVITY 1.005; UROBILINOGEN,URINE NEGATIVE mg/dL (<2.0)
--- NOTE | 2019-12-17 20:54 | RADIOLOGY REPORT (SQ) ---
EXAM DESCRIPTION: US ABDOMEN LIMITED COMPLETED DATE/TME: 12/17/2019 19:00 CLINICAL HISTORY: 84 years, Female, gall stones COMPARISON: None. TECHNIQUE: LIMITATIONS: None. FINDINGS: Somewhat limited examination due to overlying bowel gas. There are gallstones. No evidence of gallbladder wall thickening or pericholecystic fluid. The electro mechanical technologist reported a negative sonographic Guzman sign. No evidence of biliary tree dilatation. There is mild right renal atrophy. No hydronephrosis of the right kidney. There is a small right renal cyst. The mid and distal abdominal aorta are normal in caliber. The proximal abdominal aorta was obscured by bowel gas. The pancreas was not adequately visualized due to overlying bowel gas. IMPRESSION: Gallstones, with no sonographic evidence of cholecystitis. Other findings as described. copyright 2010 [employer]- All Rights Reserved
[2019-12-17] MEDS ORDERED: CEPHALEXIN 500 MG CAPSULE PO ONE (22:34)
[2019-12-17 22:58] VITALS: BP 144/59
--- NOTE | 2019-12-18 14:16 | EKG REPORT ---
SEVERITY:- ABNORMAL ECG - SINUS RHYTHM FIRST DEGREE AV BLOCK BORDERLINE LEFT AXIS DEVIATION Poor R wave progression BORDERLINE T ABNORMALITIES, INFERIOR LEADS : Confirmed by: Devendra Brennan MD 18-Dec-2019 14:15:37
== END 2019-12-17 23:00 | disposition home or self-care (01) ==
LOC: ER 17:07
DX: N39.0 Urinary tract infection, site not specified (principal); R31.9 Hematuria, unspecified; K80.20 Calculus of gallbladder without cholecystitis without obstruction; R10.9 Unspecified abdominal pain; R19.7 Diarrhea, unspecified; R07.9 Chest pain, unspecified; R25.1 Tremor, unspecified; I10 Essential (primary) hypertension; E11.9 Type 2 diabetes mellitus without complications; I44.0 Atrioventricular block, first degree; Z95.5 Presence of coronary angioplasty implant and graft; Z88.7 Allergy status to serum and vaccine
CPT/HCPCS: 93005; 99284; 36415; 87086; 83605; 83690; 85025; 85610; 87088; 80053; 81001; 84484; 71045; 76705; 93010; A9270; 87186